=== PATIENT | male | born 1985 | race African-American/Black ===

== ENCOUNTER 2020-02-09 20:09 | Emergency (ER) | payer SELFPAY ==
[~2020-02-09] VITALS: Ht 165.1 cm; Wt 66.0 kg
[2020-02-09 20:32] VITALS: BP 136/84
[2020-02-09] MEDS ORDERED: LORAZEPAM 1MG TABLET PO ONE ×2 (21:15→22:15)
[2020-02-09 21:53] LABS: BASOPHILS % 0.4 % (0.0-2.0); EOSINOPHILS % 0.2 % (0.0-5.0); HEMATOCRIT. 46.6 % (42.0-52.0); HEMOGLOBIN. 16.1 g/dL (14.0-18.0); LYMPHOCYTES % 13.6 % (20.0-50.0); MEAN CORPUSCULAR HEMOGLOBIN 30.1 pg (28.0-32.0); MEAN CORPUSCULAR VOLUME 87.2 fL (80.0-94.0); MEAN PLATELET VOLUME 9.5 fl (7.4-10.4); NEUTROPHILS % 80.8 % (40.0-76.0); PLATELET 160 x1000/uL (130-400); RED BLOOD CELL COUNT 5.34 mill/uL (4.7-6.1); RED CELL DISTRIBUTION WIDTH 13.4 % (11.6-14.6)
[2020-02-09 21:54] LABS: CHLORIDE 100 mEq/L (98-107)
[2020-02-09 21:58] LABS: ETHANOL BLOOD < 10 mg/dL
== END 2020-02-10 02:35 | disposition home or self-care (01) ==
LOC: ER 20:09
DX: F15.129 Other stimulant abuse with intoxication, unspecified (principal); R00.2 Palpitations
CPT/HCPCS: 36415; 80053; 80307; 80320; 80329; 85025; 93005; 99284; G0480